=== PATIENT | female | born 1990 | race Caucasian/White ===

== ENCOUNTER 2017-12-26 12:54 | Emergency (ER) | payer BC ==
[2017-12-26] MEDS ORDERED: Sodium Chloride 0.9% 10 ML Syringe FLUSH PRN (13:49)
[2017-12-26] MEDS ORDERED: Sodium Chloride 0.9% 2.5 ML Syringe FLUSH PRN (13:49)
[2017-12-26] MEDS ORDERED: Morphine 2 MG/ML Syringe IVPUSH ONE (13:54)
[2017-12-26] MEDS ORDERED: Ondansetron 4 MG/2 ML SDV IVPUSH ONE (13:54)
--- NOTE | 2017-12-26 13:54 | EDM.PDOC ---
ED HPI GENERAL MEDICAL PROBLEM - General Chief Complaint: Chest Pain Stated Complaint: UPPER BACK CHEST PAIN Time Seen by Provider: 12/26/17 13:52 Source of Information: Reports: Patient History Limitations: Reports: No Limitations - History of Present Illness INITIAL COMMENTS - FREE TEXT/NARRATIVE: HISTORY AND PHYSICAL: []27-year-old female presenting with right-sided abdominal pain extending to the back History of Present Illness: []Patient states pain started in the back last night and now extending around to the front abdomen Patient has Mirena IUD Review of Systems: As per history of present illness and below otherwise all systems reviewed and negative. Past medical history: As per history of present illness and as reviewed below otherwise noncontributory. Surgical history: As per history of present illness and as reviewed below otherwise noncontributory. Social history: No reported history of drug or alcohol abuse. Family history: As per history of present illness and as reviewed below otherwise noncontributory. Physical exam: Alert and oriented female answering questions appropriately in full sentences without shortness of breath. she is nontoxic in appearance. She looks quite uncomfortable. HEENT: Atraumatic, normocehpalic, pupils reactive, negative for conjunctival pallor or scleral icterus, mucous membranes moist, throat clear, neck supple, nontender, trachea midline. Lungs: Clear to auscultation, breath sounds equal bilaterally, chest non tender. Heart: S1S2, regular, negative for clicks, rubs, or JVD. Abdomen: Soft, nondistended, nontender. Negative for masses or hepatossplenmegaly. Negative for costovertebral tenderness. Pelvis: Stable nontender. Genitourinary: Deferred. Rectal: Deferred Extremities: Atraumatic, negative for cords or calf pain. Neurovascular unremarkable. Neuro: Awake, alert, oriented. Cranial nerves II through XII unremarkable. Cerebellum unremarkable. Motor and sensory unremarkable throughout. Exam nonfocal. Diagnostics: []Abdominal ultrasound CBC CMP UA EKG Therapeutics: []Zofran/morphine Impression: []Gas pain Plan: []Discharge Mylicon OTC Walking will help Duplex suppositories Definitive disposition and diagnosis as appropriate pending reevaluation and review of above. Onset: Sudden Duration: Day(s): Location: Reports: Abdomen Quality: Reports: Ache Severity: Moderate Improves with: Reports: None Worsens with: Reports: None upper back wrapping around to left chest Pain Score (Numeric/FACES): 8 - Related Data Allergies Allergy/AdvReac Type Severity Reaction Status Date / Time No Known Allergies Allergy Verified 12/26/17 13:37 Home Meds: Home Meds . [No Known Home Meds] 12/26/17 [History] Past Medical History Genitourinary History: Reports: Other (See Below) Other Genitourinary History: Renal colic BOX TOE BUFFER History: Reports: , Spontaneous , Other (See Below) Other BOX TOE BUFFER History: left ovarian cyst - Infectious Disease History Infectious Disease History: Reports: Chicken Pox - Past Surgical History HEENT Surgical History: Reports: Naso-Sinus Surgery, Tonsillectomy Female Surgical History: Reports: D&C Musculoskeletal Surgical History: Reports: Other (See Below) Other Musculoskeletal Surgeries/Procedures:: Plate in Left Arm Social & Family History - Family History Family Medical History: Noncontributory HEENT: Reports: Cataract, Glaucoma Cardiac: Reports: Bypass : Reports: Dialysis Endocrine/Metabolic: Reports: Diabetes, Type I, Diabetes, type II, Other (See Below) Other Endocrine/Metabolic Family History: Thyroid problem Oncologic: Reports: Bone, Brain, Colon, Lung, Renal - Tobacco Use Smoking Status *Q: Never Smoker Second Hand Smoke Exposure: No - Caffeine Use Caffeine Use: Reports: Coffee - Alcohol Use Days Per Week of Alcohol Use: 1 Number of Drinks Per Day: 2 Total Drinks Per Week: 2 - Recreational Drug Use Recreational Drug Use: No ED ROS GENERAL - Review of Systems Review Of Systems: ROS reveals no pertinent complaints other than HPI. ED EXAM, GENERAL - Physical Exam Exam: See Below (see dictation) Course - Vital Signs Last Recorded V/S: Last Vital Signs Temp 36.7 C 12/26/17 13:35 Pulse 61 12/26/17 13:35 Resp 20 12/26/17 13:35 BP 143/91 H 12/26/17 13:35 Pulse Ox 96 12/26/17 13:35 - Orders/Labs/Meds Orders: Active Orders 24 hr Category Date Time Status EKG Documentation Completion [RC] STAT Care 12/26/17 13:49 Active Abdomen Ltd [US] Stat Exams 12/26/17 13:49 Taken CULTURE URINE [RM] Stat Lab 12/26/17 14:00 Received UA W/MICROSCOPIC [URIN] Stat Lab 12/26/17 14:00 Ordered Sodium Chloride 0.9% [Saline Flush] Med 12/26/17 13:49 Active 10 ml FLUSH ASDIRECTED PRN Sodium Chloride 0.9% [Saline Flush] Med 12/26/17 13:49 Active 2.5 ml FLUSH ASDIRECTED PRN Saline Lock Insert [OM.PC] Stat Oth 12/26/17 13:49 Ordered Medication Orders Sodium Chloride (Saline Flush) 10 ml FLUSH ASDIRECTED PRN PRN Reason: Keep Vein Open Sodium Chloride (Saline Flush) 2.5 ml FLUSH ASDIRECTED PRN PRN Reason: Keep Vein Open Labs: Laboratory Tests 12/26/17 12/26/17 12/26/17 Range/Units 13:55 13:55 14:00 WBC 8.13 (4.0-11.0) K/uL RBC 5.00 (4.30-5.90) M/uL Hgb 13.4 (12.0-16.0) g/dL Hct 41.1 (36.0-46.0) % MCV 82.2 (80.0-98.0) fL MCH 26.8 L (27.0-32.0) pg MCHC 32.6 (31.0-37.0) g/dL RDW Std Deviation 42.1 (28.0-62.0) fl RDW Coeff of Ruiz 14 (11.0-15.0) % Plt Count 292 (150-400) K/uL MPV 11.30 (7.40-12.00) fL Neut % (Auto) 73.4 (48.0-80.0) % Lymph % (Auto) 19.8 (16.0-40.0) % [place] % (Auto) 5.9 (0.0-15.0) % Eos % (Auto) 0.7 (0.0-7.0) % Baso % (Auto) 0.2 (0.0-1.5) % Neut # (Auto) 6.0 H (1.4-5.7) K/uL Lymph # (Auto) 1.6 (0.6-2.4) K/uL [place] # (Auto) 0.5 (0.0-0.8) K/uL Eos # (Auto) 0.1 (0.0-0.7) K/uL Baso # (Auto) 0.0 (0.0-0.1) K/uL Nucleated RBC % 0.0 /100WBC Nucleated RBCs # 0 K/uL Sodium 138 (136-145) mmol/L Potassium 3.9 (3.5-5.1) mmol/L Chloride 104 (98-107) mmol/L Carbon Dioxide 26.6 (21.0-32.0) mmol/L BUN 4 L (7.0-18.0) mg/dL Creatinine 0.7 (0.6-1.0) mg/dL Est Cr Clr Drug Dosing 104.24 mL/min Estimated GFR (MDRD) > 60.0 ml/min Glucose 99 (74-106) mg/dL Calcium 8.7 (8.5-10.1) mg/dL Total Bilirubin 0.5 (0.2-1.0) mg/dL AST 15 (15-37) IU/L ALT 19 (14-63) IU/L Alkaline Phosphatase 67 (46-116) U/L Total Protein 7.9 (6.4-8.2) g/dL Albumin 4.2 (3.4-5.0) g/dL Globulin 3.7 H (2.0-3.5) g/dL Albumin/Globulin Ratio 1.1 L (1.3-2.8) Urine Color YELLOW Urine Appearance CLEAR Urine pH 7.5 (5.0-8.0) Ur Specific [place] 1.010 (1.001-1.035) Urine Protein NEGATIVE (NEGATIVE) mg/dL Urine Glucose (UA) NEGATIVE (NEGATIVE) mg/dL Urine Ketones NEGATIVE (NEGATIVE) mg/dL Urine Occult Blood NEGATIVE (NEGATIVE) Urine Nitrite NEGATIVE (NEGATIVE) Urine Bilirubin NEGATIVE (NEGATIVE) Urine Urobilinogen 0.2 (<2.0) EU/dL Ur Leukocyte Esterase TRACE (NEGATIVE) Urine RBC 0-1 (0-2/HPF) Urine WBC 0-1 (0-5/HPF) Ur Epithelial Cells OCCASIONAL (NONE-FEW) Urine Bacteria RARE (NEGATIVE) Meds: Medications Generic Name Dose Route Start Last Admin Trade Name Freq PRN Reason Stop Dose Admin Sodium Chloride 10 ml 12/26/17 13:49 Saline Flush FLUSH ASDIRECTED PRN Keep Vein Open Sodium Chloride 2.5 ml 12/26/17 13:49 Saline Flush FLUSH ASDIRECTED PRN Keep Vein Open Discontinued Medications Generic Name Dose Route Start Last Admin Trade Name Sadia PRN Reason Stop Dose Admin Morphine Sulfate 2 mg 12/26/17 13:54 12/26/17 14:09 Morphine IVPUSH 12/26/17 13:55 2 mg ONETIME ONE Administration Ondansetron HCl 4 mg 12/26/17 13:54 12/26/17 14:09 Zofran IVPUSH 12/26/17 13:55 4 mg ONETIME ONE Administration Departure - Departure Time of Disposition: 15:17 Disposition: Home, Self-Care 01 Condition: Good Clinical Impression: Abdominal gas pain - Discharge Information *PRESCRIPTION DRUG MONITORING PROGRAM REVIEWED*: Not Applicable *COPY OF PRESCRIPTION DRUG MONITORING REPORT IN PATIENT MIHAELA: Not Applicable Instructions: Abdominal Pain, Adult Referrals: PCP,None [Primary Care Provider] - Forms: ED Department Discharge Additional Instructions: The following information is given to patients seen in the emergency department who are being discharged to home. This information is to outline your options for follow-up care. We provide all patients seen in our emergency department with a follow-up referral. The need for follow-up, as well as the timing and circumstances, are variable depending upon the specifics of your emergency department visit. If you don't have a primary care physician on staff, we will provide you with a referral. We always advise you to contact your personal physician following an emergency department visit to inform them of the circumstance of the visit and for follow-up with them and/or the need for any referrals to a consulting specialist. The emergency department will also refer you to a specialist when appropriate. This referral assures that you have the opportunity for followup care with a specialist. All of these measure are taken in an effort to provide you with optimal care, which includes your followup. Under all circumstances we always encourage you to contact your private physician who remains a resource for coordinating your care. When calling for followup care, please make the office aware that this follow-up is from your recent emergency room visit. If for any reason you are refused follow-up, please contact the [facility] emergency department at and asked to speak to the emergency department charge nurse. Discharge Mylicon OTC Walking will help Duplex suppositories - My Orders Last 24 Hours: My Active Orders 12/26/17 13:49 EKG Documentation Completion [RC] STAT Abdomen Ltd [US] Stat Sodium Chloride 0.9% [Saline Flush] 10 ml FLUSH ASDIRECTED PRN Sodium Chloride 0.9% [Saline Flush] 2.5 ml FLUSH ASDIRECTED PRN Saline Lock Insert [OM.PC] Stat 12/26/17 14:00 CULTURE URINE [RM] Stat UA W/MICROSCOPIC [URIN] Stat - Assessment/Plan Last 24 Hours: My Active Orders 12/26/17 13:49 EKG Documentation Completion [RC] STAT Abdomen Ltd [US] Stat Sodium Chloride 0.9% [Saline Flush] 10 ml FLUSH ASDIRECTED PRN Sodium Chloride 0.9% [Saline Flush] 2.5 ml FLUSH ASDIRECTED PRN Saline Lock Insert [OM.PC] Stat 12/26/17 14:00 CULTURE URINE [RM] Stat UA W/MICROSCOPIC [URIN] Stat
[2017-12-26 14:54] LABS: CHLORIDE,CL 104 mmol/L (98-107); SODIUM,NA 138 mmol/L (136-145)
--- NOTE | 2017-12-26 16:41 | US ---
EXAM DATE: 12/26/17 PATIENT'S AGE: 27 Patient: NEIDA FOX Facility: [place], [place] Site . Site : 1990 Study: US Abdomen [id number] 2:39:46 PM Ordering Physician: Doctor Vigil Final Report: INDICATION: Back pain. FINDINGS: The visualized liver is of normal contour and echotexture. There is no intrahepatic or extrahepatic biliary dilatation. Common bile duct measures 0.2 cm. Bowel gas overlies the gallbladder. There are no echogenic foci to suggest cholelithiasis. The gallbladder wall is not thickened and measures 0.2 cm. There are no pericholecystic fluid collections. The right kidney is of normal contour and echotexture. There is no hydronephrosis or hydroureter. The head and proximal body of the pancreas are unremarkable. The tail of the pancreas is not well visualized due to overlying bowel gas. IMPRESSION: Suboptimal visualization of pancreas otherwise unremarkable abdominal ultrasound. Dictated by Petra Salas MD @ Dec 26 2017 2:47PM (Electronic Signature) Report Signed by Proxy. ASHLEE
[2017-12-26 18:02] VITALS: BP 133/89
== END 2017-12-26 15:51 | disposition home or self-care (01) ==
LOC: MW.ED 12:54
DX: R14.1 Gas pain (principal)
CPT/HCPCS: 36415; 76705; 80053; 81001; 85025; 87086; 93005; 96374; 96375; 99285; J2270; J2405; 99283

== ENCOUNTER 2018-09-16 20:12 | Observation (INO) | payer BC ==
[2018-09-16] MEDS ORDERED: Ondansetron 4 MG/2 ML SDV IVPUSH ONE (20:57)
[2018-09-16] MEDS ORDERED: Ketorolac 30 MG/ML SDV IVPUSH ONE (20:57)
[2018-09-16] MEDS ORDERED: Sodium Chloride 0.9% 1,000 ML IV ONE (20:57)
--- NOTE | 2018-09-16 21:03 | EDM.PDOC ---
ED HPI GENERAL MEDICAL PROBLEM - General Chief Complaint: Genitourinary Problem Stated Complaint: BLOOD IN URINE Time Seen by Provider: 09/16/18 20:42 Source of Information: Reports: Patient History Limitations: Reports: No Limitations - History of Present Illness INITIAL COMMENTS - FREE TEXT/NARRATIVE: HISTORY AND PHYSICAL: History of present illness: Patient is a 27-year-old female presents to the ED today with concern for blood in her urine x 3-4 days. Patient states she has a history of frequent urinary tract infections as well as kidney issues. Patient states when she was 18 years old she was on dialysis for kidney failure although she is unsure of the cause. Patient states she is no longer on dialysis is producing urine on her own and has not had issues since she was 18 years old. Patient states though, she has had issues with frequent urinary tract infections. Patient states this symptom is different today and that the pain radiates to her back and is sharp. Patient denies any unilateral pain. Patient denies any burning with urination which is also unusual for her urinary tract infections. Patient states she's been taking Azo today without relief of symptoms. Patient states she also has had some nausea but has not vomited. Patient states her symptoms are worse when she tries to sit. Patient denies fever, chills, chest pain, shortness of breath, or cough. Denies headache, neck stiff ness, change in vision, syncope, or near syncope. Denies vomiting, diarrhea, constipation, or dysuria. Has not noted any blood in stool. Patient has been eating and drinking appropriately. Review of systems: As per history of present illness and below otherwise all systems reviewed and negative. Past medical history: As per history of present illness and as reviewed below otherwise noncontributory. Surgical history: As per history of present illness and as reviewed below otherwise noncontributory. Social history: See social history for further information Family history: As per history of present illness and as reviewed below otherwise noncontributory. Physical exam: General: Patient is alert, oriented, and in no acute distress. Patient standing comfortably on exam table. HEENT: Atraumatic, normocephalic, pupils equal and reactive bilaterally, negative for conjunctival pallor or scleral icterus, mucous membranes moist, TMs normal bilaterally, throat clear, neck supple, nontender, trachea midline. No drooling or trismus noted. No meningeal signs. No hot potato voice noted. Lungs: Clear to auscultation, breath sounds equal bilaterally, chest nontender. Heart: S1S2, regular rate and rhythm without overt murmur Abdomen: Soft, nondistended. Generalized tenderness to palpation of the abdomen without guarding. Negative for masses or hepatosplenomegaly. Positive for bilateral costovertebral tenderness. Pelvis: Stable nontender. Genitourinary: Deferred. Rectal: Deferred. Skin: Intact, warm, dry. No lesions or rashes noted. Extremities: Atraumatic, negative for cords or calf pain. Neurovascular unremarkable. Neuro: Awake, alert, oriented. Cranial nerves II through XII unremarkable. Cerebellum unremarkable. Motor and sensory unremarkable throughout. Exam nonfocal. Notes: Dr. Rangel verbally involved in patient care. Voices understanding and is agreeable to plan of care. Denies any further questions or concerns at this time. Diagnostics: CBC, CMP, UA, lipase, urine hCG Therapeutics: Saline, Zofran, Toradol, Rocephin Impression: Acute pyelonephritis Plan: 1. Admit to observation to Dr. Rees. Definitive disposition and diagnosis as appropriate pending reevaluation and review of above. Lower Back Pain Score (Numeric/FACES): 8 - Related Data Allergies Allergy/AdvReac Type Severity Reaction Status Date / Time No Known Allergies Allergy Verified 09/16/18 20:31 Home Meds: Home Meds . [No Known Home Meds] 12/26/17 [History] Past Medical History Genitourinary History: Reports: UTI, Recurrent, Other (See Below) Other Genitourinary History: Renal colic MITER SAWYER History: Reports: , Spontaneous , Other (See Below) Other MITER SAWYER History: left ovarian cyst Neurological History: Reports: None Hematologic History: Reports: None Immunologic History: Reports: None Oncologic (Cancer) History: Reports: None Dermatologic History: Reports: None - Infectious Disease History Infectious Disease History: Reports: None - Past Surgical History Head Surgeries/Procedures: Reports: None HEENT Surgical History: Reports: Naso-Sinus Surgery, Tonsillectomy Female Surgical History: Reports: D&C Musculoskeletal Surgical History: Reports: Other (See Below) Other Musculoskeletal Surgeries/Procedures:: Plate in Left Arm Social & Family History - Family History Family Medical History: Noncontributory HEENT: Reports: Cataract, Glaucoma Cardiac: Reports: Bypass : Reports: Dialysis Endocrine/Metabolic: Reports: Diabetes, Type I, Diabetes, type II, Other (See Below) Other Endocrine/Metabolic Family History: Thyroid problem Oncologic: Reports: Bone, Brain, Colon, Lung, Renal - Tobacco Use Smoking Status *Q: Never Smoker Second Hand Smoke Exposure: No - Caffeine Use Caffeine Use: Reports: Coffee - Recreational Drug Use Recreational Drug Use: No ED ROS GENERAL - Review of Systems Review Of Systems: ROS reveals no pertinent complaints other than HPI. ED EXAM, RENAL/ - Physical Exam Exam: See Below (See dictation) Course - Vital Signs Last Recorded V/S: Last Vital Signs Temp 36.2 C 09/16/18 20:32 Pulse 96 09/16/18 20:32 Resp 16 09/16/18 20:32 BP 139/84 09/16/18 20:32 Pulse Ox 95 09/16/18 20:32 - Orders/Labs/Meds Orders: Active Orders 24 hr Category Date Time Status Abdomen Pelvis wo Cont [CT] Stat Exams 09/16/18 20:57 Stop Req CULTURE URINE [RM] Stat Lab 09/16/18 20:31 Received cefTRIAXone [Rocephin in Dextrose,Iso-Osm 1 GM/50 ML] 1 Med 09/16/18 22:12 Ordered gm Premix Bag 1 bag IV ONETIME Labs: Laboratory Tests 09/16/18 09/16/18 09/16/18 Range/Units 20:31 20:45 21:12 WBC 12.13 H (4.0-11.0) K/uL RBC 5.04 (4.30-5.90) M/uL Hgb 12.9 (12.0-16.0) g/dL Hct 40.8 (36.0-46.0) % MCV 81.0 (80.0-98.0) fL MCH 25.6 L (27.0-32.0) pg MCHC 31.6 (31.0-37.0) g/dL RDW Std Deviation 45.3 (28.0-62.0) fl RDW Coeff of Ruiz 16 H (11.0-15.0) % Plt Count 299 (150-400) K/uL MPV 10.60 (7.40-12.00) fL Neut % (Auto) 71.9 (48.0-80.0) % Lymph % (Auto) 20.9 (16.0-40.0) % [place] % (Auto) 6.2 (0.0-15.0) % Eos % (Auto) 0.8 (0.0-7.0) % Baso % (Auto) 0.2 (0.0-1.5) % Neut # (Auto) 8.7 H (1.4-5.7) K/uL Lymph # (Auto) 2.5 H (0.6-2.4) K/uL [place] # (Auto) 0.8 (0.0-0.8) K/uL Eos # (Auto) 0.1 (0.0-0.7) K/uL Baso # (Auto) 0.0 (0.0-0.1) K/uL Nucleated RBC % 0.0 /100WBC Nucleated RBCs # 0 K/uL Sodium (136-145) mmol/L Potassium (3.5-5.1) mmol/L Chloride (98-107) mmol/L Carbon Dioxide (21.0-32.0) mmol/L BUN (7.0-18.0) mg/dL Creatinine (0.6-1.0) mg/dL Est Cr Clr Drug Dosing mL/min Estimated GFR (MDRD) ml/min Glucose (74-106) mg/dL Calcium (8.5-10.1) mg/dL Total Bilirubin (0.2-1.0) mg/dL AST (15-37) IU/L ALT (14-63) IU/L Alkaline Phosphatase (46-116) U/L Total Protein (6.4-8.2) g/dL Albumin (3.4-5.0) g/dL Globulin (2.6-4.0) g/dL Albumin/Globulin Ratio (0.9-1.6) Lipase (73-393) U/L Urine Color YELLOW Urine Appearance HAZY Urine pH 5.5 (5.0-8.0) Ur Specific [place] 1.010 (1.001-1.035) Urine Protein 30 H (NEGATIVE) mg/dL Urine Glucose (UA) 100 H (NEGATIVE) mg/dL Urine Ketones NEGATIVE (NEGATIVE) mg/dL Urine Occult Blood SMALL H (NEGATIVE) Urine Nitrite POSITIVE H (NEGATIVE) Urine Bilirubin NEGATIVE (NEGATIVE) Urine Urobilinogen 4.0 H (<2.0) EU/dL Ur Leukocyte Esterase MODERATE H (NEGATIVE) Urine RBC 0-2 (0-2/HPF) Urine WBC 14-16 (0-5/HPF) Ur Epithelial Cells FEW (NONE-FEW) Urine Bacteria FEW (NEGATIVE) Urine HCG, Qual NEGATIVE (NEGATIVE) 09/16/18 Range/Units 21:12 WBC (4.0-11.0) K/uL RBC (4.30-5.90) M/uL Hgb (12.0-16.0) g/dL Hct (36.0-46.0) % MCV (80.0-98.0) fL MCH (27.0-32.0) pg MCHC (31.0-37.0) g/dL RDW Std Deviation (28.0-62.0) fl RDW Coeff of Ruiz (11.0-15.0) % Plt Count (150-400) K/uL MPV (7.40-12.00) fL Neut % (Auto) (48.0-80.0) % Lymph % (Auto) (16.0-40.0) % [place] % (Auto) (0.0-15.0) % Eos % (Auto) (0.0-7.0) % Baso % (Auto) (0.0-1.5) % Neut # (Auto) (1.4-5.7) K/uL Lymph # (Auto) (0.6-2.4) K/uL [place] # (Auto) (0.0-0.8) K/uL Eos # (Auto) (0.0-0.7) K/uL Baso # (Auto) (0.0-0.1) K/uL Nucleated RBC % /100WBC Nucleated RBCs # K/uL Sodium 140 (136-145) mmol/L Potassium 3.6 (3.5-5.1) mmol/L Chloride 101 (98-107) mmol/L Carbon Dioxide 26.4 (21.0-32.0) mmol/L BUN 7 (7.0-18.0) mg/dL Creatinine 0.7 (0.6-1.0) mg/dL Est Cr Clr Drug Dosing 104.24 mL/min Estimated GFR (MDRD) > 60.0 ml/min Glucose 105 (74-106) mg/dL Calcium 9.4 (8.5-10.1) mg/dL Total Bilirubin 0.7 (0.2-1.0) mg/dL AST 13 L (15-37) IU/L ALT 20 (14-63) IU/L Alkaline Phosphatase 69 (46-116) U/L Total Protein 8.2 (6.4-8.2) g/dL Albumin 4.4 (3.4-5.0) g/dL Globulin 3.8 (2.6-4.0) g/dL Albumin/Globulin Ratio 1.2 (0.9-1.6) Lipase 93 (73-393) U/L Urine Color Urine Appearance Urine pH (5.0-8.0) Ur Specific [place] (1.001-1.035) Urine Protein (NEGATIVE) mg/dL Urine Glucose (UA) (NEGATIVE) mg/dL Urine Ketones (NEGATIVE) mg/dL Urine Occult Blood (NEGATIVE) Urine Nitrite (NEGATIVE) Urine Bilirubin (NEGATIVE) Urine Urobilinogen (<2.0) EU/dL Ur Leukocyte Esterase (NEGATIVE) Urine RBC (0-2/HPF) Urine WBC (0-5/HPF) Ur Epithelial Cells (NONE-FEW) Urine Bacteria (NEGATIVE) Urine HCG, Qual (NEGATIVE) Meds: Medications Discontinued Medications Generic Name Dose Route Start Last Admin Trade Name Freq PRN Reason Stop Dose Admin Sodium Chloride 1,000 mls @ 999 mls/hr 09/16/18 20:57 09/16/18 21:44 Normal Saline IV 09/16/18 21:57 999 mls/hr BOLUS ONE Administration Ketorolac Tromethamine 30 mg 09/16/18 20:57 09/16/18 21:46 Toradol IVPUSH 09/16/18 20:58 30 mg ONETIME ONE Administration Ondansetron HCl 4 mg 09/16/18 20:57 09/16/18 21:44 Zofran IVPUSH 09/16/18 20:58 4 mg ONETIME ONE Administration Departure - Departure Time of Disposition: 22:13 Disposition: Refer to Observation Clinical Impression: Acute pyelonephritis - Discharge Information Referrals: PCP,None [Primary Care Provider] - - My Orders Last 24 Hours: My Active Orders 09/16/18 20:31 CULTURE URINE [RM] Stat 09/16/18 20:57 Abdomen Pelvis wo Cont [CT] Stat 09/16/18 22:12 cefTRIAXone [Rocephin in Dextrose,Iso-Osm 1 GM/50 ML] 1 gm Premix Bag 1 bag IV ONETIME - Assessment/Plan Last 24 Hours: My Active Orders 09/16/18 20:31 CULTURE URINE [RM] Stat 09/16/18 20:57 Abdomen Pelvis wo Cont [CT] Stat 09/16/18 22:12 cefTRIAXone [Rocephin in Dextrose,Iso-Osm 1 GM/50 ML] 1 gm Premix Bag 1 bag IV ONETIME
[2018-09-16 21:42] LABS: CHLORIDE,CL 101 mmol/L (98-107); SODIUM,NA 140 mmol/L (136-145)
[2018-09-16] MEDS ORDERED: cefTRIAXone 1 GM in Premix Bag 1 BAG IV ONE (22:12)
[2018-09-16] MEDS: Meropenem 1 GM in Sodium Chloride 0.9% 100 ML IV SCH ×2 (23:18→23:19)
[2018-09-16] MEDS: Sodium Chloride 0.9% 1,000 ML IV SCH (23:36)
[2018-09-16] MEDS: oxyCODONE 5 MG Tab PO PRN (23:48)
[2018-09-17] MEDS ORDERED: Meropenem 1 GM in Sodium Chloride 0.9% 100 ML IV SCH ×2
[2018-09-17] MEDS: Acetaminophen 325 MG Tab PO PRN ×2 (03:56→15:56)
[2018-09-17] MEDS: Enoxaparin 40 MG/0.4 ML Syringe SUBCUT SCH (05:45)
[2018-09-17] MEDS: oxyCODONE 5 MG Tab PO PRN ×3 (06:39→21:30)
--- NOTE | 2018-09-17 07:28 | PCM.HP ---
H&P History of Present Illness - General Date of Service: 09/17/18 Admit Problem/Dx: Admission Diagnosis/Problem Admission Diagnosis/Problem Acute pyelonephritis Source of Information: Patient History Limitations: Reports: No Limitations - History of Present Illness Initial Comments - Free Text/Narative: The patient is a 27-year-old lady who had presented to the emergency department out of concern for hematuria for 3-4 days prior to presentation. Patient says that she has a history of repetitive urinary tract infections and she tried to resolve this at home with the use of [id number] preparations as well as cranberry juice. The patient became concerned when she started to develop back pain and right flank pain. The patient says that she has not had any fever or chills. Had times is felt very cold and very hot. The patient is also having pain which radiates down into her abdomen. She has denied any nausea or vomiting. No specific aggravating or relieving factors. Onset of Symptoms: Reports: Gradual Duration of Symptoms: Reports: Getting Worse Location: Reports: Abdomen, Back Quality: Reports: Ache, Stabbing Improves with: Reports: None Worsens with: Reports: None Associated Symptoms: Reports: No Other Symptoms Lower Back Pain Score (Numeric/FACES): 6 - Related Data Allergies/Adverse Reactions: Allergies Allergy/AdvReac Type Severity Reaction Status Date / Time juarez Allergy Hives Uncoded 09/17/18 05:48 Home Medications: Home Meds Multivitamin [Multi-Vitamin Daily] 1 each PO DAILY 09/17/18 [History] Past Medical History HEENT History: Reports: None Cardiovascular History: Reports: None Respiratory History: Reports: None Gastrointestinal History: Reports: None Genitourinary History: Reports: UTI, Recurrent, Other (See Below) Other Genitourinary History: Renal colic [employer] History: Reports: , Spontaneous , Other (See Below) Other OB/BYN History: left ovarian cyst Musculoskeletal History: Reports: None Neurological History: Reports: None Psychiatric History: Reports: None Endocrine/Metabolic History: Reports: None Hematologic History: Reports: None Immunologic History: Reports: None Oncologic (Cancer) History: Reports: None Dermatologic History: Reports: None - Infectious Disease History Infectious Disease History: Reports: Chicken Pox - Past Surgical History Head Surgeries/Procedures: Reports: None HEENT Surgical History: Reports: Naso-Sinus Surgery, Tonsillectomy Female Surgical History: Reports: D&C Musculoskeletal Surgical History: Reports: Other (See Below) Other Musculoskeletal Surgeries/Procedures:: Plate in Left Arm Social & Family History - Family History Family Medical History: Noncontributory HEENT: Reports: Cataract, Glaucoma Cardiac: Reports: Bypass : Reports: Dialysis Endocrine/Metabolic: Reports: Diabetes, Type I, Diabetes, type II, Other (See Below) Other Endocrine/Metabolic Family History: Thyroid problem Oncologic: Reports: Bone, Brain, Colon, Lung, Renal - Tobacco Use Smoking Status *Q: Never Smoker Second Hand Smoke Exposure: No - Caffeine Use Caffeine Use: Reports: Coffee - Alcohol Use Days Per Week of Alcohol Use: 3 Number of Drinks Per Day: 1 Total Drinks Per Week: 3 - Recreational Drug Use Recreational Drug Use: No - Living Situation & Occupation Living situation: Reports: , with Spouse Occupation: Employed H&P Review of Systems - Review of Systems: Review Of Systems: See Below General: Reports: Fever, Chills, Malaise HEENT: Reports: No Symptoms Pulmonary: Reports: No Symptoms Cardiovascular: Reports: No Symptoms Gastrointestinal: Reports: Abdominal Pain, Decreased Appetite Genitourinary: Reports: No Symptoms Musculoskeletal: Reports: Back Pain Skin: Reports: No Symptoms Psychiatric: Reports: No Symptoms Neurological: Reports: No Symptoms Hematologic/Lymphatic: Reports: No Symptoms Immunologic: Reports: No Symptoms Exam - Exam Exam: See Below - Vital Signs Vital Signs: Last Vital Signs Temp 36.3 C 09/17/18 07:10 Pulse 76 09/17/18 07:10 Resp 18 09/17/18 07:10 BP 147/91 H 09/17/18 07:10 Pulse Ox 94 L 09/17/18 07:10 Weight: 90.718 kg - Exam Quality Assessment: No: Supplemental Oxygen General: Alert, Oriented, Cooperative, Mild Distress HEENT: Conjunctiva Clear, EACs Clear, EOMI, Mucosa Moist & [place], Pupils Equal, PERRLA Neck: Supple, Trachea Midline Lungs: Clear to Auscultation, Normal Respiratory Effort Cardiovascular: Regular Rhythm, Tachycardia (114 on monitor) GI/Abdominal Exam: Normal Bowel Sounds, No Distention, Tender (Umbilical area). No: Guarding, Rigid, Rebound Back Exam: Normal Inspection, Full Range of Motion. No: CVA Tenderness (L), CVA Tenderness (R) Extremities: Normal Inspection, Normal Range of Motion, No Pedal Edema Skin: Warm, Dry, Intact Neurological: Cranial Nerves Intact Neuro Extensive - Mental Status: Alert, Oriented x3 Psychiatric: Alert, Normal Affect, Normal Mood - Patient Data Lab Results Last 24 hrs: Laboratory Results - last 24 hr 09/16/18 09/16/18 09/16/18 Range/Units 20:31 20:45 21:12 WBC 12.13 H (4.0-11.0) K/uL RBC 5.04 (4.30-5.90) M/uL Hgb 12.9 (12.0-16.0) g/dL Hct 40.8 (36.0-46.0) % MCV 81.0 (80.0-98.0) fL MCH 25.6 L (27.0-32.0) pg MCHC 31.6 (31.0-37.0) g/dL RDW Std Deviation 45.3 (28.0-62.0) fl RDW Coeff of Ruiz 16 H (11.0-15.0) % Plt Count 299 (150-400) K/uL MPV 10.60 (7.40-12.00) fL Neut % (Auto) 71.9 (48.0-80.0) % Lymph % (Auto) 20.9 (16.0-40.0) % [place] % (Auto) 6.2 (0.0-15.0) % Eos % (Auto) 0.8 (0.0-7.0) % Baso % (Auto) 0.2 (0.0-1.5) % Neut # (Auto) 8.7 H (1.4-5.7) K/uL Lymph # (Auto) 2.5 H (0.6-2.4) K/uL [place] # (Auto) 0.8 (0.0-0.8) K/uL Eos # (Auto) 0.1 (0.0-0.7) K/uL Baso # (Auto) 0.0 (0.0-0.1) K/uL Nucleated RBC % 0.0 /100WBC Nucleated RBCs # 0 K/uL Sodium (136-145) mmol/L Potassium (3.5-5.1) mmol/L Chloride (98-107) mmol/L Carbon Dioxide (21.0-32.0) mmol/L BUN (7.0-18.0) mg/dL Creatinine (0.6-1.0) mg/dL Est Cr Clr Drug Dosing mL/min Estimated GFR (MDRD) ml/min Glucose (74-106) mg/dL Calcium (8.5-10.1) mg/dL Total Bilirubin (0.2-1.0) mg/dL AST (15-37) IU/L ALT (14-63) IU/L Alkaline Phosphatase (46-116) U/L Total Protein (6.4-8.2) g/dL Albumin (3.4-5.0) g/dL Globulin (2.6-4.0) g/dL Albumin/Globulin Ratio (0.9-1.6) Lipase (73-393) U/L Urine Color YELLOW Urine Appearance HAZY Urine pH 5.5 (5.0-8.0) Ur Specific [place] 1.010 (1.001-1.035) Urine Protein 30 H (NEGATIVE) mg/dL Urine Glucose (UA) 100 H (NEGATIVE) mg/dL Urine Ketones NEGATIVE (NEGATIVE) mg/dL Urine Occult Blood SMALL H (NEGATIVE) Urine Nitrite POSITIVE H (NEGATIVE) Urine Bilirubin NEGATIVE (NEGATIVE) Urine Urobilinogen 4.0 H (<2.0) EU/dL Ur Leukocyte Esterase MODERATE H (NEGATIVE) Urine RBC 0-2 (0-2/HPF) Urine WBC 14-16 (0-5/HPF) Ur Epithelial Cells FEW (NONE-FEW) Urine Bacteria FEW (NEGATIVE) Urine HCG, Qual NEGATIVE (NEGATIVE) 09/16/18 09/17/18 Range/Units 21:12 06:33 WBC 9.53 (4.0-11.0) K/uL RBC 4.84 (4.30-5.90) M/uL Hgb 12.1 (12.0-16.0) g/dL Hct 40.0 (36.0-46.0) % MCV 82.6 (80.0-98.0) fL MCH 25.0 L (27.0-32.0) pg MCHC 30.3 L (31.0-37.0) g/dL RDW Std Deviation 46.6 (28.0-62.0) fl RDW Coeff of Ruiz 16 H (11.0-15.0) % Plt Count 263 (150-400) K/uL MPV 11.30 (7.40-12.00) fL Neut % (Auto) 56.6 (48.0-80.0) % Lymph % (Auto) 33.9 (16.0-40.0) % [place] % (Auto) 7.8 (0.0-15.0) % Eos % (Auto) 1.5 (0.0-7.0) % Baso % (Auto) 0.2 (0.0-1.5) % Neut # (Auto) 5.4 (1.4-5.7) K/uL Lymph # (Auto) 3.2 H (0.6-2.4) K/uL [place] # (Auto) 0.7 (0.0-0.8) K/uL Eos # (Auto) 0.1 (0.0-0.7) K/uL Baso # (Auto) 0.0 (0.0-0.1) K/uL Nucleated RBC % 0.0 /100WBC Nucleated RBCs # 0 K/uL Sodium 140 (136-145) mmol/L Potassium 3.6 (3.5-5.1) mmol/L Chloride 101 (98-107) mmol/L Carbon Dioxide 26.4 (21.0-32.0) mmol/L BUN 7 (7.0-18.0) mg/dL Creatinine 0.7 (0.6-1.0) mg/dL Est Cr Clr Drug Dosing 104.24 mL/min Estimated GFR (MDRD) > 60.0 ml/min Glucose 105 (74-106) mg/dL Calcium 9.4 (8.5-10.1) mg/dL Total Bilirubin 0.7 (0.2-1.0) mg/dL AST 13 L (15-37) IU/L ALT 20 (14-63) IU/L Alkaline Phosphatase 69 (46-116) U/L Total Protein 8.2 (6.4-8.2) g/dL Albumin 4.4 (3.4-5.0) g/dL Globulin 3.8 (2.6-4.0) g/dL Albumin/Globulin Ratio 1.2 (0.9-1.6) Lipase 93 (73-393) U/L Urine Color Urine Appearance Urine pH (5.0-8.0) Ur Specific [place] (1.001-1.035) Urine Protein (NEGATIVE) mg/dL Urine Glucose (UA) (NEGATIVE) mg/dL Urine Ketones (NEGATIVE) mg/dL Urine Occult Blood (NEGATIVE) Urine Nitrite (NEGATIVE) Urine Bilirubin (NEGATIVE) Urine Urobilinogen (<2.0) EU/dL Ur Leukocyte Esterase (NEGATIVE) Urine RBC (0-2/HPF) Urine WBC (0-5/HPF) Ur Epithelial Cells (NONE-FEW) Urine Bacteria (NEGATIVE) Urine HCG, Qual (NEGATIVE) Result Diagrams: 09/17/18 06:33 09/16/18 21:12 - Problem List (1) Acute pyelonephritis SNOMED Code(s): 11325589 ICD Code: N10 - ACUTE PYELONEPHRITIS Status: Acute Priority: High Current Visit: Yes Problem List Initiated/Reviewed/Updated: Yes Orders Last 24hrs: Active Orders 24 hr Category Date Time Status Admission Status [Patient Status] [ADT] Stat ADT 09/16/18 22:14 Active Oxygen Therapy [RC] PRN Care 09/17/18 04:58 Active Up ad Tabitha [RC] ASDIRECTED Care 09/17/18 04:58 Active VTE/DVT Education [RC] DAILY Care 09/17/18 04:58 Active Vital Signs [RC] Q4H Care 09/17/18 04:58 Active Regular Diet [DIET] Diet 09/17/18 Breakfast Active CMP [COMPREHENSIVE METABOLIC PN,CMP] [CHEM] AM Lab 09/17/18 06:33 Received CULTURE URINE [RM] Stat Lab 09/16/18 20:31 Received Acetaminophen [Tylenol] Med 09/16/18 23:03 Active 650 mg PO Q6H PRN Enoxaparin [Lovenox] Med 09/17/18 05:30 Active 40 mg SUBCUT Q24H Meropenem [Merrem] 1 gm Med 09/17/18 00:00 Active Sodium Chloride 0.9% [Normal Saline] 100 ml IV Q8H Morphine Med 09/16/18 23:04 Active 2 mg IVPUSH Q2H PRN Ondansetron [Zofran] Med 09/16/18 23:05 Active 4 mg IVPUSH Q4H PRN Sodium Chloride 0.9% [Normal Saline] 1,000 ml Med 09/16/18 23:15 Active IV ASDIRECTED oxyCODONE Med 09/16/18 23:03 Active 5 mg PO Q4H PRN Resuscitation Status Routine Resus Stat 09/17/18 04:58 Ordered Medication Orders Acetaminophen (Tylenol) 650 mg PO Q6H PRN PRN Reason: Pain (mild 1-3) Last Admin: 09/17/18 03:56 Dose: 650 mg Enoxaparin Sodium (Lovenox) 40 mg SUBCUT Q24H [facility] Last Admin: 09/17/18 05:45 Dose: 40 mg Sodium Chloride (Normal Saline) 1,000 mls @ 100 mls/hr IV ASDIRECTED ESTUARDO Last Admin: 09/16/18 23:36 Dose: 100 mls/hr Meropenem 1 gm/ Sodium (Chloride) 100 mls @ 200 mls/hr IV Q8H [facility] Last Admin: 09/16/18 23:36 Dose: 200 mls/hr Morphine Sulfate (Morphine) 2 mg IVPUSH Q2H PRN PRN Reason: Pain (severe 7-10) Ondansetron HCl (Zofran) 4 mg IVPUSH Q4H PRN PRN Reason: Nausea/Vomiting Oxycodone HCl (Oxycodone) 5 mg PO Q4H PRN PRN Reason: Pain (moderate 4-6) Last Admin: 09/17/18 06:39 Dose: 5 mg Admin: 09/16/18 23:48 Dose: 5 mg Assessment/Plan Comment:: The patient is an otherwise healthy 27-year-old lady who was admitted to acute hospitalization secondary to pyelonephritis. The patient initially had been started on ceftriaxone and this is been changed to meropenem 1 g IV every 8 hours. The patient will be kept on a regular diet as tolerated. She's been encouraged to ambulate. The patient will also be kept on DVT prophylaxis with the use of Lovenox. Repeat laboratory studies have been ordered. The patient's antibiotics will be changed as cultures indicate. The patient should be appropriate for discharge in 1-2 days.
[2018-09-17 07:34] LABS: CHLORIDE,CL 104 mmol/L (98-107); SODIUM,NA 140 mmol/L (136-145)
[2018-09-17] MEDS: Meropenem 1 GM in Sodium Chloride 0.9% 100 ML IV SCH ×3 (08:54→23:21)
[2018-09-17] MEDS: Ondansetron 4 MG/2 ML SDV IVPUSH PRN ×2 (09:51→21:30)
[2018-09-17] MEDS: Sodium Chloride 0.9% 1,000 ML IV SCH ×2 (10:42→21:34)
[2018-09-18] MEDS: Acetaminophen 325 MG Tab PO PRN ×3 (00:03→20:19)
[2018-09-18] MEDS: Ondansetron 4 MG/2 ML SDV IVPUSH PRN ×4 (05:21→22:57)
[2018-09-18] MEDS: oxyCODONE 5 MG Tab PO PRN ×4 (05:21→21:22)
[2018-09-18] MEDS: Enoxaparin 40 MG/0.4 ML Syringe SUBCUT SCH (05:25)
[2018-09-18] MEDS: Sodium Chloride 0.9% 1,000 ML IV SCH ×2 (05:25→16:00)
[2018-09-18 06:05] LABS: CHLORIDE,CL 103 mmol/L (98-107); SODIUM,NA 139 mmol/L (136-145)
[2018-09-18] MEDS: Meropenem 1 GM in Sodium Chloride 0.9% 100 ML IV SCH (08:41)
[2018-09-18] MEDS: Morphine 2 MG/ML Syringe IVPUSH PRN ×3 (08:55→17:31)
--- NOTE | 2018-09-18 09:11 | PCM.PN ---
<Toña Ramos M - Last Filed: 09/18/18 10:15> - General Info Date of Service: 09/18/18 Admission Dx/Problem (Free Text): Admission Diagnosis/Problem Admission Diagnosis/Problem Acute pyelonephritis Subjective Update: Having more pain today on urination. No fevers overnight, but flank pain is worse. No chest pain or SOB. Passing gas. Functional Status: Reports: Pain Controlled, Tolerating Diet, Ambulating, Urinating - Review of Systems General: Reports: No Symptoms. Denies: Fever, Weakness, Fatigue Pulmonary: Reports: No Symptoms. Denies: Shortness of Breath Cardiovascular: Reports: No Symptoms. Denies: Chest Pain Gastrointestinal: Reports: Flatus, Nausea. Denies: Abdominal Pain Genitourinary: Reports: Dysuria, Burning, Flank Pain (R flank pain) Musculoskeletal: Reports: Back Pain (low back pain) Skin: Reports: No Symptoms Neurological: Reports: No Symptoms Psychiatric: Reports: No Symptoms - Patient Data Vitals - Most Recent: Last Vital Signs Temp 97.9 F 09/18/18 04:00 Pulse 79 09/18/18 04:00 Resp 14 09/18/18 04:00 BP 123/73 09/18/18 04:00 Pulse Ox 97 09/18/18 04:00 Weight - Most Recent: 90.718 kg I&O - Last 24 Hours: Intake & Output 09/17/18 09/18/18 09/18/18 22:59 06:59 14:59 Intake Total 2035 1787 Output Total 500 1100 Balance 1535 687 Lab Results Last 24 Hours: Laboratory Results - last 24 hr 09/18/18 09/18/18 Range/Units 05:32 05:32 WBC 7.48 (4.0-11.0) K/uL RBC 4.65 (4.30-5.90) M/uL Hgb 11.8 L (12.0-16.0) g/dL Hct 38.8 (36.0-46.0) % MCV 83.4 (80.0-98.0) fL MCH 25.4 L (27.0-32.0) pg MCHC 30.4 L (31.0-37.0) g/dL RDW Std Deviation 46.5 (28.0-62.0) fl RDW Coeff of Ruiz 15 (11.0-15.0) % Plt Count 263 (150-400) K/uL MPV 10.80 (7.40-12.00) fL Neut % (Auto) 52.6 (48.0-80.0) % Lymph % (Auto) 38.0 (16.0-40.0) % [place] % (Auto) 7.6 (0.0-15.0) % Eos % (Auto) 1.7 (0.0-7.0) % Baso % (Auto) 0.1 (0.0-1.5) % Neut # (Auto) 3.9 (1.4-5.7) K/uL Lymph # (Auto) 2.8 H (0.6-2.4) K/uL [place] # (Auto) 0.6 (0.0-0.8) K/uL Eos # (Auto) 0.1 (0.0-0.7) K/uL Baso # (Auto) 0.0 (0.0-0.1) K/uL Nucleated RBC % 0.0 /100WBC Nucleated RBCs # 0 K/uL Sodium 139 (136-145) mmol/L Potassium 4.3 (3.5-5.1) mmol/L Chloride 103 (98-107) mmol/L Carbon Dioxide 29.1 (21.0-32.0) mmol/L BUN 6 L (7.0-18.0) mg/dL Creatinine 0.6 (0.6-1.0) mg/dL Est Cr Clr Drug Dosing 121.62 mL/min Estimated GFR (MDRD) > 60.0 ml/min Glucose 95 (74-106) mg/dL Calcium 8.5 (8.5-10.1) mg/dL Total Bilirubin 0.5 (0.2-1.0) mg/dL AST 11 L (15-37) IU/L ALT 12 L (14-63) IU/L Alkaline Phosphatase 52 (46-116) U/L Total Protein 7.1 (6.4-8.2) g/dL Albumin 3.6 (3.4-5.0) g/dL Globulin 3.5 (2.6-4.0) g/dL Albumin/Globulin Ratio 1.0 (0.9-1.6) Gal[place] Results Last 24 Hours: Microbiology 09/16/18 20:31 Urine Culture - Final Urine, Clean Catch Escherichia Coli Med Orders - Current: Current Medications Acetaminophen (Tylenol) 650 mg PO Q6H PRN PRN Reason: Pain (mild 1-3) Last Admin: 09/18/18 07:53 Dose: 650 mg Enoxaparin Sodium (Lovenox) 40 mg SUBCUT Q24H [facility] Last Admin: 09/18/18 05:25 Dose: 40 mg Sodium Chloride (Normal Saline) 1,000 mls @ 100 mls/hr IV ASDIRECTED [facility] Last Admin: 09/18/18 05:25 Dose: 100 mls/hr Meropenem 1 gm/ Sodium (Chloride) 100 mls @ 200 mls/hr IV Q8H [facility] Last Admin: 09/18/18 08:41 Dose: 200 mls/hr Morphine Sulfate (Morphine) 2 mg IVPUSH Q2H PRN PRN Reason: Pain (severe 7-10) Last Admin: 09/18/18 08:55 Dose: 2 mg Ondansetron HCl (Zofran) 4 mg IVPUSH Q4H PRN PRN Reason: Nausea/Vomiting Last Admin: 09/18/18 05:21 Dose: 4 mg Oxycodone HCl (Oxycodone) 5 mg PO Q4H PRN PRN Reason: Pain (moderate 4-6) Last Admin: 09/18/18 05:21 Dose: 5 mg Discontinued Medications Sodium Chloride (Normal Saline) 1,000 mls @ 999 mls/hr IV BOLUS ONE Stop: 09/16/18 21:57 Last Admin: 09/16/18 21:44 Dose: 999 mls/hr Ceftriaxone Sodium/Dextrose 1 (gm/ Premix) 50 mls @ 100 mls/hr IV ONETIME ONE Stop: 09/16/18 22:41 Last Admin: 09/16/18 22:23 Dose: 100 mls/hr Meropenem 1 gm/ Sodium (Chloride) 100 mls @ 200 mls/hr IV Q8H [facility] Last Admin: 09/16/18 23:19 Dose: Not Given Meropenem 1 gm/ Sodium (Chloride) 100 mls @ 200 mls/hr IV Q8H [facility] Last Admin: 09/16/18 23:36 Dose: 200 mls/hr Ketorolac Tromethamine (Toradol) 30 mg IVPUSH ONETIME ONE Stop: 09/16/18 20:58 Last Admin: 09/16/18 21:46 Dose: 30 mg Ondansetron HCl (Zofran) 4 mg IVPUSH ONETIME ONE Stop: 09/16/18 20:58 Last Admin: 09/16/18 21:44 Dose: 4 mg - Exam General: Alert, Oriented, Cooperative, Mild Distress (flank pain, requesting Morphine) Lungs: Clear to Auscultation, Normal Respiratory Effort Cardiovascular: Regular Rate, Regular Rhythm GI/Abdominal Exam: Normal Bowel Sounds, Soft, Non-Tender Extremities: Normal Inspection, Normal Range of Motion, Non-Tender, No Pedal Edema Neurological: No New Focal Deficit Psy/Mental Status: Alert, Normal Affect, Normal Mood - Problem List & Annotations (1) Acute pyelonephritis SNOMED Code(s): 91856664 Code(s): N10 - ACUTE PYELONEPHRITIS Status: Acute Priority: High Current Visit: Yes - Problem List Review Problem List Initiated/Reviewed/Updated: Yes - My Orders Last 24 Hours: My Active Orders 09/18/18 08:43 Abdomen Pelvis wo Cont [CT] Urgent - Plan Plan:: This 27 year old female admitted with acute pyelonephritis 1. E Coli Pyelonephritis: Pedraza sensitive e coli on UC today. Descalate antibiotics to Rocephin today. Obtained CT due to increasing pain, no abscess or renal calculus noted. Monitor pain today and likely discharge this afternoon or tomorrow. VTE Prophylaxis: Lovenox Dispo: 1 day <Jewel Rees - Last Filed: 09/18/18 15:07> - General Info Admission Dx/Problem (Free Text): I have seen and examined to patient independently of Toña Ramos CNP. I have discussed the case for care of this patient with her. I have reviewed and approve of the plan of care as outlined by TORSTEN. Please see orders. - Patient Data Vitals - Most Recent: Last Vital Signs Temp 36.3 C 09/18/18 12:00 Pulse 66 09/18/18 12:00 Resp 16 09/18/18 12:00 BP 124/72 09/18/18 12:00 Pulse Ox 95 09/18/18 12:00 I&O - Last 24 Hours: Intake & Output 0509/18/18 09/18/18 06:59 14:59 22:59 Intake Total 1787 150 Output Total 1100 Balance 687 150 Lab Results Last 24 Hours: Laboratory Results - last 24 hr 09/18/18 09/18/18 Range/Units 05:32 05:32 WBC 7.48 (4.0-11.0) K/uL RBC 4.65 (4.30-5.90) M/uL Hgb 11.8 L (12.0-16.0) g/dL Hct 38.8 (36.0-46.0) % MCV 83.4 (80.0-98.0) fL MCH 25.4 L (27.0-32.0) pg MCHC 30.4 L (31.0-37.0) g/dL RDW Std Deviation 46.5 (28.0-62.0) fl RDW Coeff of Ruiz 15 (11.0-15.0) % Plt Count 263 (150-400) K/uL MPV 10.80 (7.40-12.00) fL Neut % (Auto) 52.6 (48.0-80.0) % Lymph % (Auto) 38.0 (16.0-40.0) % [place] % (Auto) 7.6 (0.0-15.0) % Eos % (Auto) 1.7 (0.0-7.0) % Baso % (Auto) 0.1 (0.0-1.5) % Neut # (Auto) 3.9 (1.4-5.7) K/uL Lymph # (Auto) 2.8 H (0.6-2.4) K/uL [place] # (Auto) 0.6 (0.0-0.8) K/uL Eos # (Auto) 0.1 (0.0-0.7) K/uL Baso # (Auto) 0.0 (0.0-0.1) K/uL Nucleated RBC % 0.0 /100WBC Nucleated RBCs # 0 K/uL Sodium 139 (136-145) mmol/L Potassium 4.3 (3.5-5.1) mmol/L Chloride 103 (98-107) mmol/L Carbon Dioxide 29.1 (21.0-32.0) mmol/L BUN 6 L (7.0-18.0) mg/dL Creatinine 0.6 (0.6-1.0) mg/dL Est Cr Clr Drug Dosing 121.62 mL/min Estimated GFR (MDRD) > 60.0 ml/min Glucose 95 (74-106) mg/dL Calcium 8.5 (8.5-10.1) mg/dL Total Bilirubin 0.5 (0.2-1.0) mg/dL AST 11 L (15-37) IU/L ALT 12 L (14-63) IU/L Alkaline Phosphatase 52 (46-116) U/L Total Protein 7.1 (6.4-8.2) g/dL Albumin 3.6 (3.4-5.0) g/dL Globulin 3.5 (2.6-4.0) g/dL Albumin/Globulin Ratio 1.0 (0.9-1.6) [place] Results Last 24 Hours: Microbiology 09/16/18 20:31 Urine Culture - Final Urine, Clean Catch Escherichia Coli Med Orders - Current: Current Medications Acetaminophen (Tylenol) 650 mg PO Q6H PRN PRN Reason: Pain (mild 1-3) Last Admin: 09/18/18 07:53 Dose: 650 mg Enoxaparin Sodium (Lovenox) 40 mg SUBCUT Q24H [facility] Last Admin: 09/18/18 05:25 Dose: 40 mg Sodium Chloride (Normal Saline) 1,000 mls @ 100 mls/hr IV ASDIRECTED [facility] Last Admin: 09/18/18 05:25 Dose: 100 mls/hr Ceftriaxone Sodium/Dextrose 1 (gm/ Premix) 50 mls @ 100 mls/hr IV Q24H [facility] Last Admin: 09/18/18 10:47 Dose: 100 mls/hr Morphine Sulfate (Morphine) 2 mg IVPUSH Q2H PRN PRN Reason: Pain (severe 7-10) Last Admin: 09/18/18 13:03 Dose: 2 mg Ondansetron HCl (Zofran) 4 mg IVPUSH Q4H PRN PRN Reason: Nausea/Vomiting Last Admin: 09/18/18 12:18 Dose: 4 mg Oxycodone HCl (Oxycodone) 5 mg PO Q4H PRN PRN Reason: Pain (moderate 4-6) Last Admin: 09/18/18 10:58 Dose: 5 mg Discontinued Medications Sodium Chloride (Normal Saline) 1,000 mls @ 999 mls/hr IV BOLUS ONE Stop: 09/16/18 21:57 Last Admin: 09/16/18 21:44 Dose: 999 mls/hr Ceftriaxone Sodium/Dextrose 1 (gm/ Premix) 50 mls @ 100 mls/hr IV ONETIME ONE Stop: 09/16/18 22:41 Last Admin: 09/16/18 22:23 Dose: 100 mls/hr Meropenem 1 gm/ Sodium (Chloride) 100 mls @ 200 mls/hr IV Q8H [facility] Last Admin: 09/16/18 23:19 Dose: Not Given Meropenem 1 gm/ Sodium (Chloride) 100 mls @ 200 mls/hr IV Q8H [facility] Last Admin: 09/16/18 23:36 Dose: 200 mls/hr Meropenem 1 gm/ Sodium (Chloride) 100 mls @ 200 mls/hr IV Q8H [facility] Last Admin: 09/18/18 08:41 Dose: 200 mls/hr Ketorolac Tromethamine (Toradol) 30 mg IVPUSH ONETIME ONE Stop: 09/16/18 20:58 Last Admin: 09/16/18 21:46 Dose: 30 mg Ondansetron HCl (Zofran) 4 mg IVPUSH ONETIME ONE Stop: 09/16/18 20:58 Last Admin: 09/16/18 21:44 Dose: 4 mg - Problem List & Annotations (1) Acute pyelonephritis SNOMED Code(s): 49668191 Code(s): N10 - ACUTE PYELONEPHRITIS Status: Acute Priority: High Current Visit: Yes
--- NOTE | 2018-09-18 10:14 | CT ---
CT of the abdomen and pelvis without contrast. HISTORY: Pyelonephritis TECHNIQUE: Axial CT images were obtained of the abdomen and pelvis without contrast. Coronal and sagittal reconstructions obtained. FINDINGS: Mild atelectasis within the lung bases. The liver, spleen, adrenal glands, and pancreas appear unremarkable for noncontrast examination. The gallbladder appears normal. There is no bulky retroperitoneal lymphadenopathy. No abdominal ascites. Tiny fat-containing umbilical hernia. There are no calcifications noted within the kidneys or along the courses of the ureters bilaterally. The large and small bowel are normal in caliber without evidence of obstruction. The appendix appears normal. There is no bulky pelvic lymphadenopathy. No free fluid. No free air. The urinary bladder appears normal. The visualized osseous structures appear normal. IMPRESSION: 1. No nephrolithiasis or evidence of obstructive uropathy bilaterally.
[2018-09-18] MEDS: cefTRIAXone 1 GM in Premix Bag 1 BAG IV SCH (10:47)
[2018-09-19] MEDS: Acetaminophen 325 MG Tab PO PRN ×2 (02:35→09:34)
[2018-09-19] MEDS: Sodium Chloride 0.9% 1,000 ML IV SCH (02:36)
[2018-09-19 05:53] LABS: CHLORIDE,CL 103 mmol/L (98-107); SODIUM,NA 140 mmol/L (136-145)
[2018-09-19] MEDS: oxyCODONE 5 MG Tab PO PRN ×2 (05:55→10:55)
[2018-09-19] MEDS: Enoxaparin 40 MG/0.4 ML Syringe SUBCUT SCH (05:56)
[2018-09-19 07:41] VITALS: BP 121/64
--- NOTE | 2018-09-19 08:57 | PCM.DCSUM1 ---
<Toña Ramos - Last Filed: 09/19/18 09:52> Discharge Summary - Hospital Course Brief History: This 27-year-old female with pmh of recurrent UTIs who had presented to the emergency department out of concern for hematuria for 3-4 days prior to presentation. She tried to resolve this at home with the use of over- the-counter preparations as well as cranberry juice. The patient became concerned when she started to develop back pain and right flank pain. The patient says that she has not had any fever or chills. Had times is felt very cold and very hot. The patient is also having pain which radiates down into her abdomen. She has denied any nausea or vomiting. No specific aggravating or relieving factors Diagnosis: Stroke: No - Discharge Data Discharge Date: 09/19/18 Discharge Disposition: Home, Self-Care 01 Condition: Good - Discharge Diagnosis/Problem(s) (1) Acute pyelonephritis SNOMED Code(s): 52261840 ICD Code: N10 - ACUTE PYELONEPHRITIS Status: Acute Priority: High Current Visit: Yes - Patient Instructions Diet: Regular Diet as Tolerated Activity: As Tolerated Showering/Bathing: May Shower Notify Provider of: Fever, Increased Pain, Swelling and Redness, Drainage, Nausea and/or Vomiting - Discharge Plan *PRESCRIPTION DRUG MONITORING PROGRAM REVIEWED*: Not Applicable *COPY OF PRESCRIPTION DRUG MONITORING REPORT IN PATIENT MIHAELA: Not Applicable Prescriptions/Med Rec: Cefdinir 300 mg PO BID #20 capsule Home Medications: Home Meds Multivitamin [Multi-Vitamin Daily] 1 each PO DAILY 09/17/18 [History] Cefdinir 300 mg PO BID #20 capsule 09/19/18 [Rx] Oxygen Therapy Mode: Room Air Patient Handouts: Pyelonephritis, Adult, Cefdinir capsules Referrals: Andria Anaya DO [Physician] - 09/29/18 9:45 am (follow up 1 week) - Discharge Summary/Plan Comment DC Time >30 min.: No Discharge Summary/Plan Comment: Admitting Diagnosis: Pyelonephritis Discharge Diagnosis: Pyelonephritis Melody was admitted and initially treated with Rocephin and changed to Meropenem due to frequent UTIs. She was treated with IVFs and pain medication for flank pain. On admission day 2, she was having increased pain, CT of abdomen pelvis obtained to rule out renal calculus. CT was unremarkable. UC returned with zaragoza sensitive E coli and antibiotics were de-escalated to Rocephin. She didn't feel comfortable going home yesterday. Overnight she has done well, labwork remains WNL. Pain is more tolerable. SHe will be discharged home today with Cefdinir 300 mg BID for 10 more days. She is to follow up with PCP in 1 week. She is to return to ED or clinic if concerns should arise. She was instructed she can take Tylenol or Ibuprofen for pain control. - General Info Date of Service: 09/19/18 Admission Dx/Problem (Free Text: Pyelonephritis. Subjective Update: Doing well this morning, no nausea. Flank pain is much better this morning and she feels ready for discharge home. no new concerns. Functional Status: Reports: Pain Controlled, Tolerating Diet, Ambulating, Urinating - Review of Systems General: Reports: No Symptoms. Denies: Fever, Weakness, Fatigue Pulmonary: Reports: No Symptoms. Denies: Shortness of Breath Cardiovascular: Reports: No Symptoms. Denies: Chest Pain Gastrointestinal: Reports: No Symptoms. Denies: Abdominal Pain, Nausea, Vomiting Genitourinary: Reports: Flank Pain (scant, much improved from admission) - Patient Data Vitals - Most Recent: Last Vital Signs Temp 98.5 F 09/19/18 07:41 Pulse 87 09/19/18 07:41 Resp 16 09/19/18 07:41 BP 121/64 09/19/18 07:41 Pulse Ox 93 L 09/19/18 07:41 Weight - Most Recent: 90.718 kg I&O - Last 24 hours: Intake & Output 09/18/18 09/19/18 09/19/18 22:59 06:59 14:59 Intake Total 2171 1457 Output Total 1900 900 Balance 271 557 Lab Results - Last 24 hrs: Laboratory Results - last 24 hr 09/19/18 09/19/18 Range/Units 05:18 05:18 WBC 6.14 (4.0-11.0) K/uL RBC 4.36 (4.30-5.90) M/uL Hgb 10.8 L (12.0-16.0) g/dL Hct 36.0 (36.0-46.0) % MCV 82.6 (80.0-98.0) fL MCH 24.8 L (27.0-32.0) pg MCHC 30.0 L (31.0-37.0) g/dL RDW Std Deviation 45.2 (28.0-62.0) fl RDW Coeff of Ruiz 15 (11.0-15.0) % Plt Count 246 (150-400) K/uL MPV 10.90 (7.40-12.00) fL Neut % (Auto) 54.1 (48.0-80.0) % Lymph % (Auto) 36.6 (16.0-40.0) % [place] % (Auto) 7.0 (0.0-15.0) % Eos % (Auto) 2.1 (0.0-7.0) % Baso % (Auto) 0.2 (0.0-1.5) % Neut # (Auto) 3.3 (1.4-5.7) K/uL Lymph # (Auto) 2.3 (0.6-2.4) K/uL [place] # (Auto) 0.4 (0.0-0.8) K/uL Eos # (Auto) 0.1 (0.0-0.7) K/uL Baso # (Auto) 0.0 (0.0-0.1) K/uL Nucleated RBC % 0.0 /100WBC Nucleated RBCs # 0 K/uL Sodium 140 (136-145) mmol/L Potassium 3.8 (3.5-5.1) mmol/L Chloride 103 (98-107) mmol/L Carbon Dioxide 27.7 (21.0-32.0) mmol/L BUN 4 L (7.0-18.0) mg/dL Creatinine 0.6 (0.6-1.0) mg/dL Est Cr Clr Drug Dosing 121.62 mL/min Estimated GFR (MDRD) > 60.0 ml/min Glucose 92 (74-106) mg/dL Calcium 8.3 L (8.5-10.1) mg/dL MARV Results - Last 24 hrs: Microbiology 09/16/18 20:31 Urine Culture - Final Urine, Clean Catch Escherichia Coli Med Orders - Current: Current Medications Acetaminophen (Tylenol) 650 mg PO Q6H PRN PRN Reason: Pain (mild 1-3) Last Admin: 09/19/18 02:35 Dose: 650 mg Enoxaparin Sodium (Lovenox) 40 mg SUBCUT Q24H [facility] Last Admin: 09/19/18 05:56 Dose: 40 mg Sodium Chloride (Normal Saline) 1,000 mls @ 100 mls/hr IV ASDIRECTED [facility] Last Admin: 09/19/18 02:36 Dose: 100 mls/hr Ceftriaxone Sodium/Dextrose 1 (gm/ Premix) 50 mls @ 100 mls/hr IV Q24H [facility] Last Admin: 09/18/18 10:47 Dose: 100 mls/hr Morphine Sulfate (Morphine) 2 mg IVPUSH Q2H PRN PRN Reason: Pain (severe 7-10) Last Admin: 09/18/18 17:31 Dose: 2 mg Ondansetron HCl (Zofran) 4 mg IVPUSH Q4H PRN PRN Reason: Nausea/Vomiting Last Admin: 09/18/18 22:57 Dose: 4 mg Oxycodone HCl (Oxycodone) 5 mg PO Q4H PRN PRN Reason: Pain (moderate 4-6) Last Admin: 09/19/18 05:55 Dose: 5 mg Discontinued Medications Sodium Chloride (Normal Saline) 1,000 mls @ 999 mls/hr IV BOLUS ONE Stop: 09/16/18 21:57 Last Admin: 09/16/18 21:44 Dose: 999 mls/hr Ceftriaxone Sodium/Dextrose 1 (gm/ Premix) 50 mls @ 100 mls/hr IV ONETIME ONE Stop: 09/16/18 22:41 Last Admin: 09/16/18 22:23 Dose: 100 mls/hr Meropenem 1 gm/ Sodium (Chloride) 100 mls @ 200 mls/hr IV Q8H [facility] Last Admin: 09/16/18 23:19 Dose: Not Given Meropenem 1 gm/ Sodium (Chloride) 100 mls @ 200 mls/hr IV Q8H [facility] Last Admin: 09/16/18 23:36 Dose: 200 mls/hr Meropenem 1 gm/ Sodium (Chloride) 100 mls @ 200 mls/hr IV Q8H [facility] Last Admin: 09/18/18 08:41 Dose: 200 mls/hr Ketorolac Tromethamine (Toradol) 30 mg IVPUSH ONETIME ONE Stop: 09/16/18 20:58 Last Admin: 09/16/18 21:46 Dose: 30 mg Ondansetron HCl (Zofran) 4 mg IVPUSH ONETIME ONE Stop: 09/16/18 20:58 Last Admin: 09/16/18 21:44 Dose: 4 mg - Exam General: Reports: Alert, Oriented, Cooperative Lungs: Reports: Clear to Auscultation, Normal Respiratory Effort Cardiovascular: Reports: Regular Rate, Regular Rhythm GI/Abdominal Exam: Normal Bowel Sounds, Soft, Non-Tender, No Mass Extremities: Normal Inspection, Normal Range of Motion, Non-Tender Wound/Incisions: Reports: Healing Well Neurological: Reports: No New Focal Deficit Psy/Mental Status: Reports: Alert, Normal Affect, Normal Mood <NegritaJewel porter M - Last Filed: 09/19/18 10:47> Discharge Summary - Hospital Course HPI Initial Comments: I have seen and examined to patient independently of Toña Ramos CNP. I have discussed the case for care of this patient with her. I have reviewed and approve of the plan of care as outlined by TORSTEN. Please see orders. - Discharge Diagnosis/Problem(s) (1) Acute pyelonephritis SNOMED Code(s): 99397272 ICD Code: N10 - ACUTE PYELONEPHRITIS Status: Acute Priority: High Current Visit: Yes - Patient Data Vitals - Most Recent: Last Vital Signs Temp 36.9 C 09/19/18 07:41 Pulse 87 09/19/18 07:41 Resp 16 09/19/18 07:41 BP 121/64 09/19/18 07:41 Pulse Ox 93 L 09/19/18 07:41 I&O - Last 24 hours: Intake & Output 09/18/18 09/19/18 09/19/18 22:59 06:59 14:59 Intake Total 2171 1457 1023 Output Total 1900 900 800 Balance 271 557 223 Lab Results - Last 24 hrs: Laboratory Results - last 24 hr 09/19/18 09/19/18 Range/Units 05:18 05:18 WBC 6.14 (4.0-11.0) K/uL RBC 4.36 (4.30-5.90) M/uL Hgb 10.8 L (12.0-16.0) g/dL Hct 36.0 (36.0-46.0) % MCV 82.6 (80.0-98.0) fL MCH 24.8 L (27.0-32.0) pg MCHC 30.0 L (31.0-37.0) g/dL RDW Std Deviation 45.2 (28.0-62.0) fl RDW Coeff of Ruiz 15 (11.0-15.0) % Plt Count 246 (150-400) K/uL MPV 10.90 (7.40-12.00) fL Neut % (Auto) 54.1 (48.0-80.0) % Lymph % (Auto) 36.6 (16.0-40.0) % [place] % (Auto) 7.0 (0.0-15.0) % Eos % (Auto) 2.1 (0.0-7.0) % Baso % (Auto) 0.2 (0.0-1.5) % Neut # (Auto) 3.3 (1.4-5.7) K/uL Lymph # (Auto) 2.3 (0.6-2.4) K/uL [place] # (Auto) 0.4 (0.0-0.8) K/uL Eos # (Auto) 0.1 (0.0-0.7) K/uL Baso # (Auto) 0.0 (0.0-0.1) K/uL Nucleated RBC % 0.0 /100WBC Nucleated RBCs # 0 K/uL Sodium 140 (136-145) mmol/L Potassium 3.8 (3.5-5.1) mmol/L Chloride 103 (98-107) mmol/L Carbon Dioxide 27.7 (21.0-32.0) mmol/L BUN 4 L (7.0-18.0) mg/dL Creatinine 0.6 (0.6-1.0) mg/dL Est Cr Clr Drug Dosing 121.62 mL/min Estimated GFR (MDRD) > 60.0 ml/min Glucose 92 (74-106) mg/dL Calcium 8.3 L (8.5-10.1) mg/dL MARV Results - Last 24 hrs: Microbiology 09/16/18 20:31 Urine Culture - Final Urine, Clean Catch Escherichia Coli Med Orders - Current: Current Medications Acetaminophen (Tylenol) 650 mg PO Q6H PRN PRN Reason: Pain (mild 1-3) Last Admin: 09/19/18 09:34 Dose: 650 mg Enoxaparin Sodium (Lovenox) 40 mg SUBCUT Q24H [facility] Last Admin: 09/19/18 05:56 Dose: 40 mg Sodium Chloride (Normal Saline) 1,000 mls @ 100 mls/hr IV ASDIRECTED [facility] Last Admin: 09/19/18 02:36 Dose: 100 mls/hr Ceftriaxone Sodium/Dextrose 1 (gm/ Premix) 50 mls @ 100 mls/hr IV Q24H [facility] Last Admin: 09/19/18 09:32 Dose: 100 mls/hr Morphine Sulfate (Morphine) 2 mg IVPUSH Q2H PRN PRN Reason: Pain (severe 7-10) Last Admin: 09/18/18 17:31 Dose: 2 mg Ondansetron HCl (Zofran) 4 mg IVPUSH Q4H PRN PRN Reason: Nausea/Vomiting Last Admin: 09/18/18 22:57 Dose: 4 mg Oxycodone HCl (Oxycodone) 5 mg PO Q4H PRN PRN Reason: Pain (moderate 4-6) Last Admin: 09/19/18 05:55 Dose: 5 mg Discontinued Medications Sodium Chloride (Normal Saline) 1,000 mls @ 999 mls/hr IV BOLUS ONE Stop: 09/16/18 21:57 Last Admin: 09/16/18 21:44 Dose: 999 mls/hr Ceftriaxone Sodium/Dextrose 1 (gm/ Premix) 50 mls @ 100 mls/hr IV ONETIME ONE Stop: 09/16/18 22:41 Last Admin: 09/16/18 22:23 Dose: 100 mls/hr Meropenem 1 gm/ Sodium (Chloride) 100 mls @ 200 mls/hr IV Q8H [facility] Last Admin: 09/16/18 23:19 Dose: Not Given Meropenem 1 gm/ Sodium (Chloride) 100 mls @ 200 mls/hr IV Q8H [facility] Last Admin: 09/16/18 23:36 Dose: 200 mls/hr Meropenem 1 gm/ Sodium (Chloride) 100 mls @ 200 mls/hr IV Q8H [facility] Last Admin: 09/18/18 08:41 Dose: 200 mls/hr Ketorolac Tromethamine (Toradol) 30 mg IVPUSH ONETIME ONE Stop: 09/16/18 20:58 Last Admin: 09/16/18 21:46 Dose: 30 mg Ondansetron HCl (Zofran) 4 mg IVPUSH ONETIME ONE Stop: 09/16/18 20:58 Last Admin: 09/16/18 21:44 Dose: 4 mg
[2018-09-19] MEDS: cefTRIAXone 1 GM in Premix Bag 1 BAG IV SCH (09:32)
== END 2018-09-19 10:58 | disposition home or self-care (01) ==
LOC: MW.ED 20:12 → MW.MS 22:14
PROVIDERS: ADMIT Internal Medicine; ATTEND Internal Medicine
DX: N10 Acute pyelonephritis (principal); Z91.048 Other nonmedicinal substance allergy status
CPT/HCPCS: 36415; 74176; 80048; 80053; 81001; 81025; 83690; 85025; 87086; 87088; 87186; 96361; 96365; 96375; 99284; A4217; A9270; J0696; J1650; J1885; J2185; J2270; J2405; J7030; J7040; 96366; 96367; 96372; 96376; 99283; G0378

== ENCOUNTER 2021-09-06 19:47 | Emergency (ER) | payer BC ==
[2021-09-06] MEDS ORDERED: Sodium Chloride 0.9% 20 ML SDV IV PRN (20:24)
[2021-09-06] MEDS ORDERED: Orphenadrine 60 MG/2 ML Inj IV STA (20:25)
[2021-09-06] MEDS ORDERED: Ketorolac 30 MG/ML SDV IVPUSH STA (20:25)
[2021-09-06] MEDS ORDERED: Ketorolac 30 MG/ML SDV IM STA (20:41)
[2021-09-06] MEDS ORDERED: Orphenadrine 60 MG/2 ML Inj IM STA (20:41)
[2021-09-06 21:40] VITALS: BP 117/65; PULSE 88
== END 2021-09-06 21:47 | disposition home or self-care (01) ==
LOC: MW.ED 19:47
DX: S39.012A Strain of muscle, fascia and tendon of lower back, initial encounter (principal); Z91.048 Other nonmedicinal substance allergy status; X50.0XXA Overexertion from strenuous movement or load, initial encounter
CPT/HCPCS: 72100; 96372; 99283; J1885; J2360

== ENCOUNTER 2022-10-04 02:09 | Emergency (ER) | payer SELFPAY ==
[2022-10-04 02:19] VITALS: BP 153/93
[2022-10-04] MEDS ORDERED: Lidocaine 1% 20 ML MDV INJECT ONE (02:22)
[2022-10-04] MEDS ORDERED: Octyl 2-Cyanoacrylate 1 g/1 mL 1 APPLIC PEN TOP ONE (02:24)
[2022-10-04 03:10] VITALS: PULSE 67
== END 2022-10-04 03:09 | disposition home or self-care (01) ==
LOC: MW.ED 02:09
DX: S61.210A Laceration without foreign body of right index finger without damage to nail, initial encounter (principal); Z91.048 Other nonmedicinal substance allergy status; W26.0XXA Contact with knife, initial encounter; Y92.89 Other specified places as the place of occurrence of the external cause; Y99.0 Civilian activity done for income or pay
CPT/HCPCS: 12001; 73120; 99283; A9270